=== PATIENT | male | born 1995 | race Caucasian/White ===

== ENCOUNTER 2021-01-30 18:02 | Emergency (ER) | payer OTHER ==
[~2021-01-30] VITALS: Ht 175.3 cm; Wt 82.0 kg
[2021-01-30] MEDS ORDERED: AMOX-424 MT (19:57)
[2021-01-30 20:25] VITALS: BP 126/84
== END 2021-01-30 20:27 | disposition home or self-care (01) ==
LOC: ER 18:02
DX: S50.811A Abrasion of right forearm, initial encounter (principal); Z90.49 Acquired absence of other specified parts of digestive tract; W55.03XA Scratched by cat, initial encounter; Y93.89 Activity, other specified; Y92.512 Supermarket, store or market as the place of occurrence of the external cause; Y99.8 Other external cause status
CPT/HCPCS: 99281